=== PATIENT | female | born 1980 | race Caucasian/White ===

== ENCOUNTER 2024-04-16 09:06 | Emergency (ER) | payer BC ==
[~2024-04-16] VITALS: Ht 165.1 cm; Wt 57.8 kg
[2024-04-16 11:57] LABS: BASO % 0.5 % (0.0-1.0); EOS # 0.1 10^3/uL (0.0-0.5); EOS % 1.3 % (0.0-3.0); HEMATOCRIT 37.7 % (36.0-47.0); HEMOGLOBIN 12.9 g/dl (12.0-15.5); LYMPH % 32.2 % (24.0-44.0); MEAN CORPUSCULAR HEMOGLOBIN 29.9 pg (27.0-33.0); MEAN CORPUSCULAR HGB CONC 34.2 g/dl (32.0-36.5); MEAN CORPUSCULAR VOLUME 87.3 fl (80.0-96.0); MONO # 0.5 10^3/uL (0.0-0.8); MONO % 7.5 % (2.0-8.0); NEUTROPHILS # 3.7 10^3/uL (1.5-8.5); PLATELET COUNT, AUTOMATED 290 10^3/uL (150-450); RED BLOOD COUNT 4.32 10^6/uL (4.00-5.40); WHITE BLOOD COUNT 6.3 10^3/uL (4.0-10.0)
[2024-04-16] MEDS ORDERED: ISOVUE-370 76% 100ML VIAL As Ordered ONE (12:11)
[2024-04-16 12:23] LABS: HCG, SERUM QUALITATIVE NEGATIVE (NEGATIVE)
[2024-04-16 12:24] LABS: ALBUMIN 3.7 G/DL (3.2-5.2); ALKALINE PHOSPHATASE 49 U/L (35-104); ALT/SGPT 11 U/L (7.0-40); AST/SGOT 13 U/L (<34); BILIRUBIN,DIRECT < 0.1 MG/DL (<0.4); BILIRUBIN,TOTAL 0.4 MG/DL (0.3-1.2); CK-MB VALUE MASS < 1.0 NG/ML (<3.6); CPK CREATINE PHOSPHOKINASE 50 U/L (34-145); TOTAL PROTEIN 7.1 G/DL (5.7-8.2)
[2024-04-16 13:15] VITALS: BP 111/61; TEMP 98.1; O2SAT 99
[2024-04-16] MEDS ORDERED: DICL100G10 TOP (13:17)
== END 2024-04-16 13:24 | disposition home or self-care (01) ==
LOC: M ED 09:06
DX: M94.0 Chondrocostal junction syndrome [Tietze] (principal); C50.919 Malignant neoplasm of unspecified site of unspecified female breast; F10.10 Alcohol abuse, uncomplicated; K76.0 Fatty (change of) liver, not elsewhere classified; Z79.899 Other long term (current) drug therapy
CPT/HCPCS: 36415; 71046; 71275; 80047; 80076; 82550; 82553; 84443; 84484; 84703; 85025; 87486; 87581; 87633; 87798; 93005; 99284; Q9967